=== PATIENT | female | born 1970 | race American Indian/Alaskan Native ===

== ENCOUNTER 2018-07-03 16:13 | Emergency (ER) | payer OTHER ==
[2018-07-03 17:56] LABS: Amorphous Crystals,Urine Few; Bilirubin,Urine NEG (Negative); Blood,Urine MOD (Negative); Color,Urine Yellow (Yellow); Mucus,Urine FEW /HPF
[2018-07-03 17:57] LABS: RBC,Urine > 182.0 /HPF (0.0-6.0)
[2018-07-03 18:29] LABS: Basophils # (Auto) 0.1 K/mm3 (0.0-0.1); Basophils % (Auto) 0.9 % (0.0-1.8); Eosinophils % (Auto) 0.6 % (0.0-4.3); Hematocrit 33.1 % (30.3-42.9); Hemoglobin 10.5 gm/dl (10.1-14.3); Lymphocytes # (Auto) 1.8 K/mm3 (1.2-5.4); Lymphocytes % (Auto) 22.8 % (13.4-35.0); Mean Corpuscular HGB Conc 32 % (30-34); Mean Corpuscular Hemoglobin 27 pg (28-32); Mean Corpuscular Volume 85 fl (79-97); Monocytes # (Auto) 0.5 K/mm3 (0.0-0.8); Monocytes % (Auto) 6.3 % (0.0-7.3); Platelet Count 294 K/mm3 (140-440); Red Blood Count 3.92 M/mm3 (3.65-5.03); Red Cell Distribution Width 16.4 % (13.2-15.2)
--- NOTE | 2018-07-04 02:11 | Emergency Department Report ---
HPI - General Chief Complaint: Vaginal Bleeding Time Seen by Provider: 07/04/18 00:03 - HPI HPI: 48-year-old female presents to the emergency department with complaint of heavy abnormal vaginal bleeding. She says that she had her normal menstrual cycle that ended on June 20. She then began bleeding again on June 24 and has been bleeding since. She has some lower abdominal and/or pelvic cramping pains as well. Patient has a previous history of 2 C-sections, hernia repair and tubal ligation. She does not have an HEMATOLOGY SUPERVISOR. She has not taken anything for her symptoms prior to presentation. She describes the amount of bleeding as heavy. ED Past Medical Hx - Past Medical History Previous Medical History?: No - Surgical History Additional Surgical History: c/s x2, tubal ligation, hernia repair - Social History Smoking Status: Never Smoker Substance Use Type: None - Medications Home Medications: Home Medications Medication Instructions Recorded Confirmed Last Taken Type medroxyPROGESTERone ACETATE 10 mg PO QDAY #10 tablet 07/04/18 Unknown Rx [Provera] ED Review of Systems ROS: Stated complaint: BLEEDING 1WK/CRAMPING Other details as noted in HPI Comment: All other systems reviewed and negative Constitutional: denies: chills, fever Eyes: denies: eye pain, eye discharge, vision change ENT: denies: ear pain, throat pain Respiratory: denies: cough, shortness of breath, wheezing Cardiovascular: denies: chest pain, palpitations Gastrointestinal: denies: nausea, vomiting Genitourinary: other (pelvic pain, vaginal bleeding) Musculoskeletal: denies: back pain, joint swelling, arthralgia Skin: denies: rash, lesions Neurological: denies: headache, weakness, paresthesias Physical Exam - Physical Exam Vital Signs: Vital Signs 07/03/18 07/03/18 16:28 21:32 Temperature 98.8 F 98.4 F Pulse Rate 81 74 Respiratory 18 18 Rate Blood Pressure 109/75 123/84 O2 Sat by Pulse 100 100 Oximetry Physical Exam: GENERAL: The patient is well-developed well-nourished. HENT: Normocephalic. Atraumatic. Patient has moist mucous membranes. EYES: Extraocular motions are intact. NECK: Supple. Trachea is midline. CHEST/LUNGS: Clear to auscultation. There is no respiratory distress noted. HEART/CARDIOVASCULAR: Regular. There is no tachycardia. There is no murmur. ABDOMEN: Abdomen is soft, nontender. Patient has normal bowel sounds. There is no abdominal distention. SKIN: Skin is warm and dry. NEURO: The patient is awake, alert, and oriented. The patient is cooperative. The patient has no focal neurologic deficits. The patient has normal speech and gait. MUSCULOSKELETAL: There is no tenderness or deformity. There is no limitation range of motion. There is no evidence of acute injury. : No labial or vaginal lesions seen. There is a moderate amount of maroon colored blood seen in the vaginal vault and coming from the cervix. ED Course Vital Signs 07/03/18 07/03/18 16:28 21:32 Temperature 98.8 F 98.4 F Pulse Rate 81 74 Respiratory 18 18 Rate Blood Pressure 109/75 123/84 O2 Sat by Pulse 100 100 Oximetry - Consultations Consultation #1: 07/04/18 02:11 I spoke with the HEMATOLOGY SUPERVISOR auction block clerk, Dr Manriquez, who says that the patient can try Provera 10 mg but ultimately needs to follow up regarding the abnormal vaginal bleeding and the fibroids. ED Medical Decision Making - Lab Data Result diagrams: 07/03/18 16:39 - Radiology Data Radiology results: report reviewed PROCEDURE: US TRANSVAGINAL TECHNIQUE: Real-time transabdominal sonography in multiple planes of the pelvis was performed. The pelvic structures were not optimally visualized. Transvaginal sonography was then performed to better evaluate the structures and/or abnormalities described below with image documentation. Grayscale, color flow Doppler imaging and velocity spectral waveform analysis of the ovaries was employed (duplex imaging). CPT 59121, 79833, and 02219 HISTORY: pelvic pain, heavy vag bleeding COMPARISON: No prior studies are available for comparison. FINDINGS: UTERUS Size: 9.5 x 6 x 6.4 cm. Endometrial thickness: 3 mm. Orientation: anteverted. Cervix: Normal. Fibroids/masses: There are numerous fibroids identified in the uterine myometrium. These measure up to 29 millimeters. A few nabothian cysts are noted near the cervix.. RIGHT Ovary: 3.8 x 2.3 x 2.5 cm. Appearance: Small follicular cysts measures 13 millimeters. Doppler images: Normal spectral waveforms and color flow. The systolic and diastolic velocities are within normal limits. LEFT Ovary: 3.6 x 1.9 x 2.2 cm. Appearance: There is a small nabothian cyst this measures 13 millimeters. Doppler images: Normal spectral waveforms and color flow. The systolic and diastolic velocities are within normal limits. Pelvic fluid: None. Other: None. IMPRESSION: The uterus has a normal size. Multiple small fibroids are identified in the uterine myometrium. These fibroids measure up to 2.9 centimeters. There are follicular cysts identified on each ovary. Transcribed By: [facility] Dictated By: LIAN JOHNS MD Electronically Authenticated By: LIAN JOHNS MD Signed Date/Time: 07/04/18 0214 - Medical Decision Making This patient presents with a ten-day history of moderate to heavy vaginal bleeding that occurred after her normal menstrual cycle. Labs are mostly unremarkable. Ultrasound shows a normal-sized uterus with 4 different small to moderate-sized fibroids. This is most likely source of her bleeding and discomfort. She'll be placed on Provera and encouraged to see an HEMATOLOGY SUPERVISOR in the next few days. She will return to the ER with any worsening of her symptoms or any acute distress. Vital signs stable. - Differential Diagnosis malignancy, , fibroids, UTI Critical Care Time: No Critical care attestation.: If time is entered above; I have spent that time in minutes in the direct care of this critically ill patient, excluding procedure time. ED Disposition Clinical Impression: Dysfunctional uterine bleeding Uterine fibroid Qualifiers: Uterine leiomyoma location: unspecified location Qualified Code(s): D25.9 - Leiomyoma of uterus, unspecified Disposition: DC-01 TO HOME OR SELFCARE Is pt being admited?: No Condition: Stable Instructions: Medroxyprogesterone (By mouth), Dysfunctional Uterine Bleeding ( ED), Uterine Fibroids (ED) Additional Instructions: Please follow up with an HEMATOLOGY SUPERVISOR service in the next few days. Return to the emergency department with any worsening of her symptoms or any acute distress. Prescriptions: medroxyPROGESTERone ACETATE [Provera] 10 mg PO QDAY #10 tablet Referrals: PRIMARY CARE, [Primary Care Provider] - 3-5 Days [facility] [Provider Group] - 3-5 Days [facility] [Provider Group] - 3-5 Days [facility] [Provider Group] - 3-5 Days Time of Disposition: 02:14
--- NOTE | 2018-07-04 02:16 | Ultrasound Report ---
FINAL REPORT PROCEDURE: US TRANSVAGINAL TECHNIQUE: Real-time transabdominal sonography in multiple planes of the pelvis was performed. The pelvic structures were not optimally visualized. Transvaginal sonography was then performed to better evaluate the structures and/or abnormalities described below with image documentation. Grayscale, color flow Doppler imaging and velocity spectral waveform analysis of the ovaries was employed (duplex imaging). CPT 58489, 25930, and 41801 HISTORY: pelvic pain, heavy vag bleeding COMPARISON: No prior studies are available for comparison. FINDINGS: UTERUS Size: 9.5 x 6 x 6.4 cm. Endometrial thickness: 3 mm. Orientation: anteverted. Cervix: Normal. Fibroids/masses: There are numerous fibroids identified in the uterine myometrium. These measure up to 29 millimeters. A few nabothian cysts are noted near the cervix.. RIGHT Ovary: 3.8 x 2.3 x 2.5 cm. Appearance: Small follicular cysts measures 13 millimeters. Doppler images: Normal spectral waveforms and color flow. The systolic and diastolic velocities are within normal limits. LEFT Ovary: 3.6 x 1.9 x 2.2 cm. Appearance: There is a small nabothian cyst this measures 13 millimeters. Doppler images: Normal spectral waveforms and color flow. The systolic and diastolic velocities are within normal limits. Pelvic fluid: None. Other: None. IMPRESSION: The uterus has a normal size. Multiple small fibroids are identified in the uterine myometrium. These fibroids measure up to 2.9 centimeters. There are follicular cysts identified on each ovary.
--- NOTE | 2018-07-04 02:17 | Ultrasound Report ---
FINAL REPORT PROCEDURE: Ultrasound pelvis transabdominal and transvaginal TECHNIQUE: Real-time transabdominal sonography in multiple planes of the pelvis was performed. The pelvic structures were not optimally visualized. Transvaginal sonography was then performed to better evaluate the structures and/or abnormalities described below with image documentation. Grayscale, color flow Doppler imaging and velocity spectral waveform analysis of the ovaries was employed (duplex imaging). CPT 49077, 60054, and 66867 HISTORY: pelvic pain, heavy vag bleeding COMPARISON: No prior studies are available for comparison. FINDINGS: UTERUS Size: 9.5 x 6 x 6.4 cm. Endometrial thickness: 3 mm. Orientation: anteverted. Cervix: Normal. Fibroids/masses: There are numerous fibroids identified in the uterine myometrium. These measure up to 29 millimeters. A few nabothian cysts are noted near the cervix.. RIGHT Ovary: 3.8 x 2.3 x 2.5 cm. Appearance: Small follicular cysts measures 13 millimeters. Doppler images: Normal spectral waveforms and color flow. The systolic and diastolic velocities are within normal limits. LEFT Ovary: 3.6 x 1.9 x 2.2 cm. Appearance: There is a small nabothian cyst this measures 13 millimeters. Doppler images: Normal spectral waveforms and color flow. The systolic and diastolic velocities are within normal limits. Pelvic fluid: None. Other: None. IMPRESSION: The uterus has a normal size. Multiple small fibroids are identified in the uterine myometrium. These fibroids measure up to 2.9 centimeters. There are follicular cysts identified on each ovary.
[2018-07-04 03:05] VITALS: BP 122/84
== END 2018-07-04 03:05 | disposition home or self-care (01) ==
LOC: ED 16:13
DX: N93.8 Other specified abnormal uterine and vaginal bleeding (principal); D25.9 Leiomyoma of uterus, unspecified; Z98.51 Tubal ligation status
CPT/HCPCS: 36415; 76830; 81001; 84703; 85025; 86850; 86900; 86901; 93975